=== PATIENT | female | born 1970 | race Caucasian/White ===

== ENCOUNTER → 2017-03-09 | Outpatient (CLI) | payer OTHER, MEDICAID | LOC: FIMAGING 11:48 | PROVIDERS: ATTEND Internal Medicine | DX: Z12.31 Encounter for screening mammogram for malignant neoplasm of breast (principal); Z80.3 Family history of malignant neoplasm of breast | CPT/HCPCS: 81025-PO; 96372-PO; G0202 ==

== ENCOUNTER 2018-01-07 21:01 | Inpatient (IN) | payer OTHER, MEDICAID ==
--- NOTE | 2018-01-07 21:07 | EDPHY ---
H & P Time Seen by Provider: 01/07/18 21:06 HPI/ROS: CHIEF COMPLAINT: Left leg injury HISTORY OF PRESENT ILLNESS: Patient was at a barbecue and tripped on a step and fell injuring her left lower leg. Pain is lower brown, does not radiate, much worse with any movement. Started just after the fall. Moderate to severe. Brought in by EMS with a splint. REVIEW OF SYSTEMS: Eye: no change in vision ENT: no sore throat Cardiac: no chest pain or syncope Pulmonary: no cough or SOB Abdomen: No abdominal pain Musculoskeletal: No neck or back pain Skin: No laceration. Neuro: no headache Constitutional: no fever : no urinary symptoms A comprehensive 10 point review of systems is otherwise negative aside from elements mentioned in the history of present illness. PAST MEDICAL HISTORY: Includes cerebral palsy, seizure disorder, depression, high cholesterol. Old tibia fracture on the left with hardware removed. Social history: 3 beers tonight General Appearance: Alert and conversant, cooperative. Eyes: No scleral icterus. ENT, Mouth: Normal mucous membranes. Respiratory: Normal respiratory effort, breath sounds equal, lungs are clear to auscultation. Cardiovascular: Regular rate and rhythm. Gastrointestinal: Abdomen is soft and non tender. Neurological: Alert, face symmetric, normal motor and sensory in extremities. Specifically normal motor sensory and dorsalis pedis pulse in the left foot. Skin: 1 mm abrasion medial left ankle but no laceration. Musculoskeletal: Swelling and ecchymosis on the distal 3rd of the left tib- fib. Compartments soft in the left lower leg. Psychiatric: Not agitated. Emergency Department course/MDM: 2127: results discussed, splint, admit for ortho consultation in the morning. My clinical impression the patient will require admission for gait instability, pain medication, admission for monitoring of compartment syndrome. Family is in agreement that discharge home would be impractical tonight. Smoking Status: Never smoked Constitutional: Initial Vital Signs Temperature (C) 36.8 C 01/07/18 21:07 Heart Rate 72 01/07/18 21:07 Respiratory Rate 16 01/07/18 21:07 Blood Pressure 121/78 H 01/07/18 21:07 O2 Sat (%) 100 01/07/18 21:07 O2 Delivery Mode Nasal Cannula O2 (L/minute) 2 Allergies/Adverse Reactions: ENVIRONMENTAL Allergy (Mild, Uncoded 11/19/11 14:59) STUFFY NOSE Home Medications: Medication Instructions Recorded Ergocalciferol [Vitamin D 50,000 50,000 unit PO SA 09/05/11 units] levETIRAcetam [Keppra 500 mg (*)] 250 mg PO BID 09/05/11 lamoTRIgine [LamICTAL] 150 mg PO BID 09/07/11 Pravastatin Sodium 04/28/16 Valacyclovir 04/28/16 Depo-Provera 150 mg/ml (*) 01/07/18 Medical Decision Making - Diagnostics Imaging Results: Imaging Impressions Tibia/Fibula X-Ray 01/07/18 21:05 Impression: 1. Acute fractures of the left tibia and fibula. 2. Healed fractures of the medial and lateral malleolus with associated degenerative changes of the left ankle. tibia and fibula fracture, my interpretation Imaging: I viewed and interpreted images myself Procedures: Procedure: Splint placement. A left Ortho Glass long leg three-way splint was applied. After application of the splint I returned and re-examined the patient, at 2202. The splint was adequately immobilizing the joint and distal to the splint the patient's circulation and sensation was intact. Differential Diagnosis: Differential considered including but not limited to ankle dislocation, tibia fracture, fibula fracture, contusion, compartment syndrome. Consult/Admit Bed Type: [facility] 2131; [facility] 2147 Departure - Departure Disposition: [facility] Inpatient Acute Clinical Impression: Tibia/fibula fracture Qualifiers: Encounter type: initial encounter Fracture type: closed Laterality: left Qualified Code(s): S82.202A - Unspecified fracture of shaft of left tibia, initial encounter for closed fracture Condition: Good
[2018-01-07] MEDS ORDERED: HYDROmorphONE/DILAUDID 1 MG/ML INJ IVP ONE (22:08)
[2018-01-07] MEDS ORDERED: LORazepam 0.5 MG TAB PO PRN (23:06)
[2018-01-07] MEDS ORDERED: diphenhydrAMINE 25 MG CAP PO PRN (23:06)
[2018-01-07] MEDS ORDERED: ONDANSETRON 4 MG/2 ML VIAL IVP PRN (23:06)
[2018-01-07] MEDS ORDERED: HYDROCODONE/APAP 5/325 TAB PO PRN (23:06)
[2018-01-07 23:34] LABS: PLATELET COUNT 157 10^3/uL (150-400)
[2018-01-07 23:43] LABS: INR 1.05 (0.83-1.16); PROTIME(PATIENT) 13.9 SEC (12.0-15.0)
[2018-01-08] MEDS: ACETAMINOPHEN 325 MG TAB PO PRN ×2 (00:04→22:19)
[2018-01-08] MEDS ORDERED: NS 1,000 ML IV SCH (00:15)
[2018-01-08] MEDS ORDERED: levETIRAcetam 500 MG TAB PO SCH ×2 (00:15→21:00)
[2018-01-08] MEDS: lamoTRIgine 100 MG TAB PO SCH ×3 (00:35→20:23)
[2018-01-08] MEDS: PRAVASTATIN SODIUM 10 MG TAB PO SCH ×2 (00:35→20:26)
--- NOTE | 2018-01-08 02:14 | GCON ---
[f rep st] CONSULTATION REFERRING PHYSICIAN: Juan Schaffer MD CHIEF COMPLAINT: Left leg pain. HISTORY OF PRESENT ILLNESS: This is a 47-year-old female with a past medical history of seizure diso rder and cerebral palsy, who was at a barbecue earlier today. She tripped on a step and fell, injuri ng her left lower leg. She was accompanied by her aunt, whom she lives with, who immediately noticed a deformity of the tibia, and she strained the leg and waited for EMS to arrive with a splint. The patient complained of pain in that leg after the injury. She has cerebral palsy that affects her lef t side; however, it is mild and she is very high functioning. Currently, works at a [employer]. Last seizure was last year in February and other wire was well controlled prior to this injury . She ambulates without any issues, without any assistive devices. States that the CP affects her l eft hand with some tightness and her left leg, which is weaker. She does have a history of a prior l eft ankle fracture that was fixed surgically in 2011 with later hardware removal. 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 She denies an y numbness and tingling in the foot currently. REVIEW OF SYSTEMS: A 10-point review of systems was negative, except for as noted above. PAST MEDICAL HISTORY: Cerebral palsy, seizure disorder, depression, high cholesterol. SOCIAL HISTORY: Occasional alcohol. SURGICAL HISTORY: Prior left ankle ORIF and hardware removal. OBJECTIVE: Labs: Her CBC is within normal limits. PHYSICAL EXAM: GENERAL: She is alert and oriented, pleasant, does not appear to be in any distress. MUSCULOSKELETAL: The patient is in a 3-sided lower leg splint. Per ED report, the skin was closed at the fracture site without any soft tissue injury. The compartments were soft. She appears comfo rtable in the splint. The splint is quite bulky over the foot and it is difficult to assess the jack r exam, as she endorses a sensation intact to light touch over all dermatomes in her foot. She is ab le to fire her FHL, though limited by the splint. Is unable to extend her great toe, but states that this is due to the bulky splint. I am able to palpate the tendon firing when she is instructed to d o so. Her toes are all well perfused. IMAGING: X-ray of the left tibia reveals a distal 3rd shaft, spiral-type fracture of the tibia shaft with displacement and shortening. 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 There does not appear to be any bony injury to the knee. ASSESSMENT: Left tibia shaft fracture. Although the patient has a history of cerebral palsy, it is mild and she is young and very functional. Intramedullary nailing of this tibial shaft fracture is i ndicated. I discussed with her and her aunt the risks and benefits of surgery. Risks of surgery inc lude pain, bleeding, infection, damage to any surrounding structures, knee pain, and a delayed union, nonunion, need for further surgeries, wound healing complications. They understood these risks and she wished to proceed. PLAN: The patient will be admitted to the hospitalist service. I will plan on an IM nail of the lef t tibia tomorrow. /[id number]/MODL
--- NOTE | 2018-01-08 05:17 | PDGENHP ---
History and Physical - Chief Complaint Left leg pain, fall - History of Present Illness Source-patient provides history appears reliable. EMR was reviewed and case discussed with ED provider. HPI-this is a very pleasant 47-year-old female with past medical history significant for cerebral palsy with chronic left sided weakness, seizure disorder, depression, HLD who presents emergency department via EMS following a mechanical fall. Patient reports that she was a family barbecue when she was coming off of the patio she had a misstep and fell landing on her left side on some [place]. She had immediate pain in her left lower leg. She denies any numbness tingling. She denies any preceding headache, numbness tingling, chest pain, shortness of breath or palpitations. Patient does not typically require any assistance mobility devices and is quite independent. She is employed. She reports that her last fall was a few years ago and was also mechanical in nature on her left side. She did require home ORIF of the tib-fib with hardware placement and subsequent removal. Patient was put in a splint. She reports some pain in her left lower extremity but no numbness or tingling. History Information - Allergies/Home Medication List Allergies/Adverse Reactions: ENVIRONMENTAL Allergy (Mild, Uncoded 11/19/11 14:59) STUFFY NOSE Home Medications: Ergocalciferol [Vitamin D 50,000 units] 50,000 unit PO Q14D 09/05/11 [Last Taken 12/31/17] levETIRAcetam [Keppra 500 mg (*)] 500 mg PO BID 09/05/11 [Last Taken 01/07/18 08 :00] lamoTRIgine [LamICTAL] 150 mg PO BID 09/07/11 [Last Taken 01/07/18 08:00] Atenolol [Tenormin 100 mg (*)] 100 mg PO DAILY 01/07/18 [Last Taken 01/07/18] Herbals/Supplements -Info Only 1 ea PO DAILY 01/07/18 [Last Taken Unknown] Omeprazole 20 mg PO DAILY 01/07/18 [Last Taken 01/07/18] Pravastatin Sodium [Pravachol] 10 mg PO HS 01/07/18 [Last Taken 01/06/18] valACYclovir [Valtrex (*)] 2,000 mg PO Q12 PRN MDD ONE DAY 01/07/18 [Last Taken Unknown] I have personally reviewed and updated: family history, medical history, social history, surgical history - Past Medical History Additional medical history: Cerebral palsy with left-sided weakness. Left hand contracture. Seizure disorder. Depression. Hyperlipidemia - Surgical History Additional surgical history: Left tib-fib ORIF status post hardware removal. Right bunion surgery. Eye surgery - Family History Additional family history: Mother with HTN. No seizure or neurologic disorders in the family. - Social History Smoking Status: Never smoked Alcohol Use: Occasionally Drug Use: None Additional social history: Patient lives with her aunt. Cor status-full. Review of Systems Review of Systems: ROS: 10pt was reviewed & negative except for what was stated in HPI & below Muscolosketal: Reports: joint pain (Left lower leg.) Skin: Reports: no symptoms. Denies: rash Neurological: Reports: no symptoms, seizure (Patient without any symptoms for more than a year.), weakness (Chronic left-sided weakness compared to the right but mild related to patient's CP). Denies: emotional problems, numbness, tingling Hematologic/Lymphatic: Reports: no symptoms Physical Exam Physical Exam: Selected Entries 01/07/18 21:07 Blood Pressure Automatic Method Heart Rate 72 Respiratory 16 Rate O2 Sat (%) 100 Temperature (C) 36.8 C Blood Pressure 121/78 H Mean Arterial 92 Pressure (MAP) O2 (L/minute) 2 O2 Delivery Nasal Cannula Mode Temperature Oral Source Temp Pulse Resp BP Pulse Ox 36.7 C 82 16 124/71 H 100 01/07/18 23:53 01/07/18 23:53 01/07/18 23:53 01/07/18 23:53 01/07/18 23:53 O2 (L/minute) 3 Constitutional: no apparent distress, appears nourished, other (NAD. Pleasant adult female is lying quietly in bed.) Eyes: PERRL, anicteric sclera, EOMI, No scleral injection Ears, Nose, Mouth, Throat: moist mucous membranes, ears appear normal, poor dentition Cardiovascular: regular rate and rhythym, no murmur, rub, or gallop, No pulses symmetric bilaterally (Left and foot in splint. Good cap refill and sensation intact. Unable to assess pedal pulses.), No edema Peripheral Pulses: 2+: dorsalis-pedis (R) Respiratory: no respiratory distress, no rales or rhonchi, clear to auscultation , reduced air movement (Decreased inspiratory effort bilaterally but symmetric.) , No inspiratory crackles Gastrointestinal: normoactive bowel sounds, soft, non-tender abdomen, no palpable masses, other (Obese abdomen. Soft nontender.) Genitourinary: no bladder tenderness, No daily in urethra Skin: warm, normal color, mottled, no rashes or abrasions Musculoskeletal: full muscle strength (Except for left hand which is contracted and left foot in splint currently. ), No generalized weakness Neurologic: AAOx3, sensation intact bilaterally, other (Grossly nonfocal exam.) , No facial droop Psychiatric: interacting appropriately, not anxious, not encephalopathic, thought process linear Lab Data & Imaging Review 01/07/18 23:23 01/07/18 22:30 WBC 7.48 10^3/uL (3.80-9.50) 01/07/18 23:23 RBC 4.24 10^6/uL (4.18-5.33) 01/07/18 23:23 Hgb 13.5 g/dL (12.6-16.3) 01/07/18 23:23 Hct 40.6 % (38.0-47.0) 01/07/18 23:23 MCV 95.8 fL (81.5-99.8) 01/07/18 23:23 MCH 31.8 pg (27.9-34.1) 01/07/18 23:23 MCHC 33.3 g/dL (32.4-36.7) 01/07/18 23:23 RDW 12.5 % (11.5-15.2) 01/07/18 23:23 Plt Count 157 10^3/uL (150-400) 01/07/18 23:23 MPV 9.4 fL (8.7-11.7) 01/07/18 23:23 Neut % (Auto) 76.0 % (39.3-74.2) H 01/07/18 23:23 Lymph % (Auto) 16.8 % (15.0-45.0) 01/07/18 23:23 [place] % (Auto) 5.3 % (4.5-13.0) 01/07/18 23:23 Eos % (Auto) 1.1 % (0.6-7.6) 01/07/18 23:23 Baso % (Auto) 0.5 % (0.3-1.7) 01/07/18 23: Nucleat RBC Rel Count 0.0 % (0.0-0.2) 01/07/18 23:23 Absolute Neuts (auto) 5.68 10^3/uL (1.70-6.50) 01/07/18 23: Absolute Lymphs (auto) 1.26 10^3/uL (1.00-3.00) 01/07/18 23:23 Absolute Monos (auto) 0.40 10^3/uL (0.30-0.80) 01/07/18 23: Absolute Eos (auto) 0.08 10^3/uL (0.03-0.40) 01/07/18 23:23 Absolute Basos (auto) 0.04 10^3/uL (0.02-0.10) 01/07/18 23: Absolute Nucleated RBC 0.00 10^3/uL (0-0.01) 01/07/18 23: Immature Gran % 0.3 % (0.0-1.1) 01/07/18 23: Immature Gran # 0.02 10^3/uL (0.00-0.10) 01/07/18 23:23 PT 13.9 SEC (12.0-15.0) 01/07/18 23:23 INR 1.05 (0.83-1.16) 01/07/18 23:23 APTT 26.1 SEC (23.0-38.0) 01/07/18 23:23 Sodium 136 mEq/L (135-145) 01/07/18 22:30 Potassium 3.9 mEq/L (3.3-5.0) 01/07/18 22:30 Chloride 108 mEq/L (97-110) 01/07/18 22:30 Carbon Dioxide 21 mEq/l (22-31) L 01/07/18 22:30 Anion Gap 7 mEq/L (8-16) L 01/07/18 22:30 BUN 13 mg/dL (7-23) 01/07/18 22:30 Creatinine 0.8 mg/dL (0.6-1.0) 01/07/18 22:30 Estimated GFR > 60 01/07/18 22:30 Glucose 83 mg/dL (70-100) 01/07/18 22: Calcium 8.4 mg/dL (8.5-10.4) L 01/07/18 22:30 Beta HCG, Qual NEGATIVE 01/07/18 22:30 Patient ABO/Rh O POSITIVE 01/07/18 22:30 Antibody Screen NEGATIVE 01/07/18 22:30 Imaging Review: Left Tibia/Fibula (Lower Leg), 5 Views Clinical Indications: Pain following trauma. Findings: There is an acute, displaced spiral fracture of the distal shaft of the left tibia. Additionally there is a mildly displaced fracture of the proximal shaft of the left fibula. Healed fractures of the distal left tibia and fibula are noted. Degenerative changes are seen involving the left ankle. Impression: 1. Acute fractures of the left tibia and fibula. 2. Healed fractures of the medial and lateral malleolus with associated degenerative changes of the left ankle. Assessment & Plan Assessment: This is a 47-year-old female with history of cerebral palsy, seizure disorder, depression, hyperlipidemia who presents emergency department following a mechanical fall and subsequent left lower leg pain. #Tibia/fibula fracture (Acute) - patient requiring surgical repair. She has been made NPO after midnight. Dr. Pimentel has been consulted with Orthopedics. #Acute pain related to trauma - Tylenol, [place], morphine, Ativan p.r.n. For pain control. Chronic medical issues #Cerebral palsy - PT OT consultation postoperatively. Patient at baseline is very independent and active. She does not require use for assisted to sit vices for ambulation. He she does have a history of persistent left extremity weakness. #Seizure disorder - continue Lamictal and Keppra. #Depression - resume patient's home medications. #Hyperlipidemia - continue statin. FEN - patient will be made NPO after midnight. IV fluids will be initiated. Electrolyte monitoring replacement if needed. PPX-SCD to the right leg only. Holding anticoagulation preoperatively. Cor status-full Disposition-patient admitted to observation status at this time pending surgical repair and patient mobility status after surgery.
[2018-01-08] MEDS ORDERED: LORazepam 2 MG/ML INJ IVP PRN (06:20)
[2018-01-08] MEDS ORDERED: LORazepam 2 MG/ML INJ ONE (06:22)
[2018-01-08] MEDS: ATENOLOL 50 MG TAB PO SCH (07:34)
[2018-01-08] MEDS ORDERED: PANTOPRAZOLE SODIUM 40 MG VIAL IVP SCH (09:00)
[2018-01-08] MEDS ORDERED: PANTOPRAZOLE SODIUM 40 MG TAB PO SCH (09:00)
[2018-01-08] MEDS ORDERED: levETIRAcetam 500MG/NACL 100 ML IV SCH (09:00)
[2018-01-08] MEDS ORDERED: MAGNESIUM HYDROXIDE 30 ML UDCUP PO PRN (09:54)
[2018-01-08] MEDS ORDERED: LACTULOSE 20 GM/30 ML UDCUP PO PRN (09:54)
[2018-01-08] MEDS ORDERED: POLYETHYLENE GLYCOL 3350 17 GM PKT PO PRN (09:54)
[2018-01-08] MEDS ORDERED: CETIRIZINE 10 MG TAB PO PRN (09:54)
[2018-01-08] MEDS ORDERED: BISACODYL 10 MG SUPP PR PRN (09:54)
[2018-01-08] MEDS ORDERED: ceFAZolin 2 GM/DEXTROSE 100 ML IV ONE (12:05)
--- NOTE | 2018-01-08 12:05 | PDHPUP ---
History & Physical Update H&P update statement: This history and physical update is based on an assessment of the patient which was completed after admission or registration (within 24 hours), but prior to the surgery/procedure. H&P update: H&P reviewed & patient examined, no change in patient's condition since H&P completed
[2018-01-08] MEDS ORDERED: PROPOFOL 200 MG/20 ML VIAL ONE (12:16)
[2018-01-08] MEDS ORDERED: fentaNYL 100 MCG/2 ML INJ ONE ×2 (12:16)
[2018-01-08] MEDS ORDERED: LIDOCAINE 2% 5 ML SDV ONE (12:16)
[2018-01-08] MEDS ORDERED: LR 1,000 ML IV ONE (12:19)
[2018-01-08] MEDS ORDERED: MIDAZOLAM 2 MG/2 ML VIAL ONE (12:32)
[2018-01-08] MEDS ORDERED: ONDANSETRON 4 MG/2 ML VIAL ONE (12:33)
[2018-01-08] MEDS ORDERED: KETOROLAC 30 MG/1 ML SDV ONE (12:33)
[2018-01-08] MEDS ORDERED: DEXAMETHASONE 4 MG/ML VIAL ONE (12:33)
[2018-01-08] MEDS ORDERED: MIDAZOLAM 2 MG/2 ML VIAL IVP ONE (12:34)
--- NOTE | 2018-01-08 12:36 | PDANEPAE ---
ANE History of Present Illness left tibial shaft fx ANE Past Medical History - Cardiovascular History Hx Hypertension: Yes Hx Arrhythmias: No Hx Chest Pain: No Hx Coronary Artery / Peripheral Vascular Disease: No Hx CHF / Valvular Disease: No Hx Palpitations: No - Pulmonary History Hx COPD: No Hx Asthma/Reactive Airway Disease: No Hx Recent Upper Respiratory Infection: No Hx Oxygen in Use at Home: No Hx Sleep Apnea: No Sleep Apnea Screening Result - Last Documented: Positive Pulmonary History Comment: on statin drug - Neurologic History Hx Cerebrovascular Accident: No Hx Seizures: Yes Hx Dementia: No Neurologic History Comment: last seizure 2016. Left arm weaker than right. - Endocrine History Hx Diabetes: No Obesity: yes - Renal History Hx Renal Disorders: No - Liver History Hx Hepatic Disorders: No - Neurological & Psychiatric Hx Hx Neurological and Psychiatric Disorders: No Neurological / Psychiatric History Comment: mild depression - Cancer History Hx Cancer: No - Congenital Disorder History Hx Congenital Disorders: No - GI History Hx Gastrointestinal Disorders: Yes Gastrointestinal History Comment: heartburn - Other Health History Other Health History: R big toe pain - Chronic Pain History Chronic Pain: No - Surgical History Prior Surgeries: ORIF L ankle, L ankle hardware removal ANE Review of Systems Review of systems is: negative Review of Systems: - Exercise capacity Exercise capacity: >=4 METS ANE Patient History - Allergies Allergies/Adverse Reactions: ENVIRONMENTAL Allergy (Mild, Uncoded 11/19/11 14:59) STUFFY NOSE - Home Medications Home medications: home medication list seen and reviewed Home Medications: Ergocalciferol [Vitamin D 50,000 units] 50,000 unit PO Q14D 09/05/11 [Last Taken 12/31/17] levETIRAcetam [Keppra 500 mg (*)] 250 mg PO BID 09/05/11 [Last Taken 01/07/18 08 :00] lamoTRIgine [LamICTAL] 150 mg PO BID 09/07/11 [Last Taken 01/07/18 08:00] Atenolol [Tenormin 100 mg (*)] 100 mg PO DAILY 01/07/18 [Last Taken 01/07/18] Herbals/Supplements -Info Only 1 ea PO DAILY 01/07/18 [Last Taken Unknown] Omeprazole 20 mg PO DAILY 01/07/18 [Last Taken 01/07/18] Pravastatin Sodium [Pravachol] 10 mg PO HS 01/07/18 [Last Taken 01/06/18] valACYclovir [Valtrex (*)] 2,000 mg PO Q12 PRN MDD ONE DAY 01/07/18 [Last Taken Unknown] Cetirizine [ZyrTEC 10 mg (*)] 10 mg PO DAILY PRN 01/08/18 [Last Taken Unknown] Citalopram [CeleXA] 20 mg PO DAILY 01/08/18 [Last Taken Unknown] - NPO status NPO Since - Liquids (Date): 01/08/18 NPO Since - Liquids (Time): 00:01 NPO Since - Solids (Date): 01/08/18 NPO Since - Solids (Time): 00:01 - Anes Hx Anes Hx: no prior problems - Smoking Hx Smoking Status: Never smoked - Alcohol Use Alcohol Use: Occasionally ANE Labs/Vital Signs - Labs Result Diagrams: 01/07/18 23:23 01/07/18 22:30 - Vital Signs Blood Pressure: 140/89 Heart Rate: 86 Respiratory Rate: 16 O2 Sat (%): 97 Height: 157.48 cm Weight: 72.575 kg ANE Physical Exam - Airway Neck exam: FROM Mallampati Score: Class 2 Mouth exam: small mouth opening - Pulmonary Pulmonary: no respiratory distress - Cardiovascular Cardiovascular: regular rate and rhythym - ASA Status ASA Status: III ANE Anesthesia Plan Anesthesia Plan: GA w LMA
[2018-01-08] MEDS ORDERED: BUPIVACAINE/EPI 0.5% 30 ML SDV ONE (12:38)
--- NOTE | 2018-01-08 12:55 | HOSPPROG ---
Hospitalist Progress Note Assessment/Plan: Assessment: 47-year-old female presenting with acute left tibia and fibular fracture status post mechanical fall Plan: 1. Acute tibia and fibular fracture. Closed, personally interpreted on x-ray, currently immobilized with wrap and splint -RCRI score of 0, conferring is 0.5% cardiovascular morbidity and mortality perioperative risk, rendering patient low cardiovascular risk for intermediate orthopedic risk surgery, recommend proceeding to surgery without any additional cardiovascular risk stratification at this time -patient is going to the operating room with orthopedist Dr. Pimentel for left intramedullary nailing today -discussed with patient and her anti extensively the patient's home situation which includes 14 steps up to the house in [place], but they have the support of local residence until the patient get in and out of house, they are open to home health care assistance -counseled the patient that she will undergo surgery today, we will assess her therapy needs tomorrow and make further recommendations at that time -continue as needed oxycodone for pain relief, Tylenol, bowel regimen, incentive spirometer -the patient's aunt is very concerned about potentially low bone mineral density , and she has shared with me that the patient is currently on a Depo-Provera for unclear reasons, and the patient would like to temporarily discontinue this until a can be established whether the patient is receiving any clinical benefit -will discontinue her Depo-Provera and recommend the patient continue this conversation with her outpatient primary care provider 2. Gastroesophageal reflux disease. Reportedly severe, patient is currently taking proton pump inhibitor and concomitant H2 uriel -continue both medications 3. Cerebral palsy. Patient is high functioning at baseline, she has had previous mechanical falls and fractures, but there is no reason to suspect the patient will not be able to recover from the above injury after receiving surgical repair Diet. NPO, IV fluids, resume regular after surgery Code. Full Prophylaxis. Moderate risk patient, SCDs preoperatively, Lovenox postoperatively when okay with Orthopedics Disposition. Anticipated discharge is 01/09 versus 01/10, pending postoperative course. Subjective: Patient reports pain management is currently adequate at rest Objective: Vital Signs Temp Pulse Resp BP Pulse Ox 36.8 C 86 16 140/89 H 97 01/08/18 11:57 01/08/18 12:36 01/08/18 12:36 01/08/18 12:36 01/08/18 12:36 Laboratory Results 07/07/18 23:23 01/07/18 22:30 01/07/18 01/08/18 01/09/18 05:59 05:59 05:59 Intake Total 1650 Output Total 700 525 Balance 950 -525 PT 13.9 SEC (12.0-15.0) 01/07/18 23:23 INR 1.05 (0.83-1.16) 01/07/18 23:23 - Time Spent With Patient Time Spent with Patient: greater than 35 minutes Time Spent with Patient: Greater than 35 minutes spent on this patients care, greater than 50% of time spent counseling, educating, and coordinating care regarding the above mentioned plan. - Physical Exam Constitutional: no apparent distress, not in pain, uncomfortable Cardiovascular: regular rate and rhythym, no murmur, rub, or gallop, No edema Respiratory: no respiratory distress, no rales or rhonchi, clear to auscultation Gastrointestinal: normoactive bowel sounds, soft, non-tender abdomen, no palpable masses, No distension Neurologic: AAOx3 Psychiatric: not anxious, flat affect, other (Lethargic but arouses), No agitated ICD10 Worksheet Patient Problems: Problems Problem Status Onset Tibia/fibula fracture Acute
[2018-01-08] MEDS ORDERED: SUGAMMADEX SODIUM 200 MG/2 ML VIAL IVP ONE (13:00)
[2018-01-08] MEDS ORDERED: HYDROmorphONE/DILAUDID 2 MG/ML INJ ONE (13:11)
[2018-01-08] MEDS ORDERED: ROCURONIUM 50 MG/5 ML VIAL ONE ×2 (13:24)
--- NOTE | 2018-01-08 13:29 | POSTANESTH ---
Post Anesthetic Evaluation Cardiovascular Status: Normal, Stable Respiratory Status: Normal, Stable Level of Consciousness/Mental Status: Can Participate in Eval, Mildly Sleepy, Arousable Pain Control: Adequate, Prn Tx Ordered Nausea/Vomiting Control: Adequate, Prn Tx Ordered Complications Possibly Related to Anesthesia: None Noted
--- NOTE | 2018-01-08 14:22 | ASMTCMCOM ---
CM Note CM Note Notes: Case Management chart review: Patient is a 47 year old female with history of cerebral palsey,left sided weakness, seizure disorder, depression, HLD. Patient admitted via ED s/p fall resulting in Left Tibial Fracture. Per Hospitalist, patient has support from Aunt and community in [place]. Patient to undergo surgery today to address fracture. Patient is open to Home Health. Discharge options Home w/ Home Health vs. SNF TBD after surgery. CM to follow. Discharge Plan: TBD Date Signed: 01/08/2018 02:22 PM Electronically Signed By:Sade An
[2018-01-08] MEDS ORDERED: ONDANSETRON 4 MG/2 ML VIAL IVP PRN (14:31)
[2018-01-08] MEDS ORDERED: ALBUTEROL 3 ML DEYVIAL IH PRN (14:31)
[2018-01-08] MEDS ORDERED: DIAZEPAM 5 MG/ML 1 ML SYR IVP PRN (14:31)
[2018-01-08] MEDS ORDERED: NALOXONE HCL 0.4 MG/ML INJ IVP PRN (14:31)
[2018-01-08] MEDS ORDERED: fentaNYL 100 MCG/2 ML INJ IVP PRN (14:31)
[2018-01-08] MEDS ORDERED: PROMETHAZINE HCL 25 MG/ML INJ IVP PRN (14:31)
[2018-01-08] MEDS ORDERED: ACETAMINOPHEN 500 MG TAB PO PRN (14:31)
[2018-01-08] MEDS ORDERED: LR 500 ML IV PRN (14:31)
[2018-01-08] MEDS ORDERED: HYDROmorphONE/DILAUDID 1 MG/ML INJ IVP PRN (14:31)
[2018-01-08] MEDS ORDERED: oxyCODONE IR 5 MG TAB PO PRN (14:31)
--- NOTE | 2018-01-08 16:02 | GOP ---
[f rep st] OPERATIVE REPORT DATE OF OPERATION: 01/08/2018 SURGEON: Mo Pimentel MD ZUMBA INSTRUCTOR: Luke Childress, FORENSIC PATHOLOGIST, [facility]. An medical receptionist medical assistant was medically necessary for retraction and successful completion of this case. ANESTHESIA: General. PREOPERATIVE DIAGNOSIS: Left tibia shaft displaced fracture. POSTOPERATIVE DIAGNOSIS: Left tibia shaft displaced fracture. PROCEDURE PERFORMED: Left tibia intramedullary nailing. ESTIMATED BLOOD LOSS: 50 cc. INDICATIONS: The patient is a 47-year-old female with a past history of cerebral palsy and epilepsy, who presented to the ER with a displaced spiral left distal tibia shaft fracture after a fall while at a barbecue. She has a prior history of an ankle fracture with hardware and subsequent hardware removal in 2011. She has cerebral palsy that is mild and she is very functional ; however, it does affect her left side and she states that the left side is weaker. 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 Prior to this accident, she was able to ambulate without any assistive devices normally. I saw the patient in the ER, reviewed the x-rays. She has a displaced spiral type tibial shaft fracture. In an active ambulatory person, intramedullary nailing is indicated for this injury. I discussed with her and her aunt the risks and benefits of surgery. Her risks include pain, bleeding, infection, knee pain, knee stiffness, ankle stiffness, damage to the surrounding structures , delayed union and nonunion, need for further surgeries. She understood these risks and wished to proceed. DESCRIPTION OF PROCEDURE: The patient was seen in the preoperative holding area. Consents were confirmed. Surgical site was marked. She was given the opportunity to ask questions. All of her questions were answered. Consent was signed. Surgical site was marked. She was transferred to the operative suite. Care was taken to transfer the patient from the [facility] to the operating room table. Great care was taken to pad all bony prominences prior to the induction of anesthesia. General anesthesia was induced by the anesthesia team. A time- out was called including surgical and anesthesia teams confirming the surgical site and procedure to be performed. 2 g of Ancef were given prior to incision. The left lower extremity was prepped and draped in the usual sterile fashion. I first acquired a lateral x-ray of the ankle to again evaluate if there are any posterior malleolus fractures and there were none. I then made an attempt to maintain reduction with a spin-down Cordoba clamp; however, I was not able to fully get around the fracture and I was able to maintain normal reduction with an medical receptionist medical assistant providing traction and internal rotation. Thus, I decided to go ahead and place the nail. I made a standard approach for infrapatellar nailing of the tibia, incised the paratenon in a medial parapatellar approach. I placed the guidewire, checked it under fluoroscopy. When I was happy with the position of the guidewire, I then opened up the cortex with an awl. I then placed the guidewire. I placed the guidewire past the fracture site, checked the reduction under fluoroscopy. I then positioned and measured for the nail. I began reaming and began with an 8.5 end-cutting reamer and then reamed up to about 11.5. I had first planned to put a 10 nail in, however, at 11.5 there was minimal chatter, so then I reamed it up again to 12 and then 12.5. At 12.5 , there was fairly good chatter at the isthmus, so I just decided on the 11 x 315 nail. After reaming, I placed the nail. I checked the reduction after the passing of the fracture sites with rotation of the ankle and I had a fairly anatomic reduction. Impacted the nail in fully. I placed the 2 static proximal interlocks. I then placed the 2 distal interlocks in the standard fashion using the freehand technique. Final x-rays were taken. The wounds were irrigated copiously with sterile saline. The interlock screw sites were closed with buried Monocryl and then deena. An 0 Vicryl was used to close the paratenon and then 3-0 Monocryl and then deena. A sterile dressing was applied. The patient tolerated the procedure well, was taken to PACU in stable condition. IMPLANTS USED: Synthes Ex tibia nail, 11 x 315. POSTOP CONDITION: Stable. POSTOPERATIVE PLAN: The patient will be readmitted to the hospitalist service. She will begin PT. She will be toe-touch weightbearing. I will follow her while the patient is in the hospital. /[id number]/MODL MTDD
--- NOTE | 2018-01-08 19:08 | PDMN ---
Medical Necessity Medical necessity: Change to IP, as of 01/08/18, per & MCG [id number]; los >2 mn for ongoing management of acute L tib/fib fx s/p mechanical fall; requiring surgical intervention, IVFs & therapies; hx cerebral palsy; per progress note & order 01/08/18
[2018-01-08] MEDS: ceFAZolin 2 GM/DEXTROSE 100 ML IV SCH (20:22)
[2018-01-08] MEDS: levETIRAcetam 250 MG TAB PO SCH (20:24)
[2018-01-08] MEDS: SENNOSIDES/DOCUSATE SODIUM TAB PO SCH (20:26)
[2018-01-09] MEDS: ceFAZolin 2 GM/DEXTROSE 100 ML IV SCH ×2 (04:19→12:02)
[2018-01-09] MEDS: oxyCODONE IR 5 MG TAB PO PRN ×3 (09:11→20:35)
[2018-01-09] MEDS: lamoTRIgine 100 MG TAB PO SCH ×2 (09:11→20:36)
[2018-01-09] MEDS: SENNOSIDES/DOCUSATE SODIUM TAB PO SCH ×2 (09:12→20:37)
[2018-01-09] MEDS: levETIRAcetam 250 MG TAB PO SCH ×2 (09:12→20:37)
[2018-01-09] MEDS: CITALOPRAM 20 MG TAB PO SCH (09:12)
[2018-01-09] MEDS: ATENOLOL 50 MG TAB PO SCH (09:13)
[2018-01-09] MEDS: PANTOPRAZOLE SODIUM 40 MG TAB PO SCH (09:13)
[2018-01-09] MEDS: ENOXAPARIN 40 MG/0.4 ML SYR SC SCH (09:14)
--- NOTE | 2018-01-09 10:06 | SOAPPROG ---
SOAP Progress Note Assessment/Plan: Assessment: POD #1 s/p L tibia IMN -doing well, pain appears controlled Plan: -appreciate care of medicine team -DVT prophy w/ Lovenox. Start today. Plan 3 wks total -TTWB LLE -PT -pain ctrl -she is stable for d/c from ortho standpoint when she is cleared by PT/OT 01/09/18 09:56 Subjective: Doing well this morning. Pain appears well controlled. Resting in bed. Has not worked with PT yet. Objective: Vital Signs Temp Pulse Resp BP Pulse Ox 36.7 C 85 16 133/81 H 96 01/09/18 07:24 01/09/18 09:13 01/09/18 07:24 01/09/18 09:13 01/09/18 07:24 Laboratory Results 01/07/18 23:23 01/07/18 22:30 01/08/18 01/09/18 01/10/18 05:59 05:59 05:59 Intake Total 1650 2325 200 Output Total 700 2625 250 Balance 950 -300 -50 PT 13.9 SEC (12.0-15.0) 01/07/18 23:23 INR 1.05 (0.83-1.16) 01/07/18 23:23 LLE -dressings are c/d/i with no breakthrough -intact ankle DF/PF. She states that she has always had difficulty with mobility of toes due to condition -SILT all dermatomes in foot -2+ DP pulse -no pain with passive stretch of toes ICD10 Worksheet Patient Problems: Problems Problem Status Onset Tibia/fibula fracture Acute
--- NOTE | 2018-01-09 15:25 | ASMTCMCOM ---
CM Note CM Note Notes: Patient is POD #1 tibia LMN. She's doing well, with pain well controlled. PT recommending home care v SNF. I spoke with the patient's aunt/caregiver Flaca. They have DME at home and have arranged for the [place] [employer] to help transfer patient into the home tomorrow. They are also available to help get patient out of the house for doctor's appointments, etc. This is what the family did when patient last broke her leg. I've ordered [facility] PT/OT. Likely discharge tomorrow. Case Management will follow. Date Signed: 01/09/2018 03:25 PM Electronically Signed By:Valarie Mckeon RN
--- NOTE | 2018-01-09 17:59 | HOSPPROG ---
Hospitalist Progress Note Assessment/Plan: Assessment: 47-year-old female presenting with acute left tibia and fibular fracture status post mechanical fall Plan: 1. Acute tibia and fibular fracture. POD#[address] Pimentel -d/w Dr. Pimentel, he recommends TDWB LLE, keep area clean/dry, and f/u w/ his office in 1.5-2 weeks from DC -continue as needed oxycodone for pain relief, Tylenol, bowel regimen -ongoing work w/ PT/OT today, not safe to DC home, but tomorrow pt w/ have asst from local fire dept to [facility] -patient family requested ASA at discharge for DVT ppx, appropriate, rec 81 daily while immobile -the patient's aunt is very concerned about potentially low bone mineral density , and she has shared with me that the patient is currently on a Depo-Provera for unclear reasons, and the patient would like to temporarily discontinue this until a can be established whether the patient is receiving any clinical benefit -will discontinue her Depo-Provera and recommend the patient continue this conversation with her outpatient primary care provider 2. Gastroesophageal reflux disease. Reportedly severe, patient is currently taking proton pump inhibitor and concomitant H2 uriel -continue both medications 3. Cerebral palsy. Patient is high functioning at baseline, she has had previous mechanical falls and fractures, but there is no reason to suspect the patient will not be able to recover from the above injury after receiving surgical repair 4. Acute atelectasis. Counseled patient and aunt to use IS and that o2 requirements should be weaned as activity advances -if continues to require o2, get CXR Diet. Regular Code. Full Prophylaxis. Moderate risk patient, lovenox 40 Disposition. Anticipated discharge is 01/10 w/ [facility] Subjective: patient w/ mild pain, used half oxy IR, has paresthesia distal LLE Objective: Vital Signs Temp Pulse Resp BP Pulse Ox 36.6 C 77 16 116/81 H 95 01/09/18 15:27 01/09/18 15:27 01/09/18 15:27 01/09/18 15:27 01/09/18 15:27 Laboratory Results 01/07/18 23:23 01/07/18 22:30 01/08/18 01/09/18 01/10/18 05:59 05:59 05:59 Intake Total 1650 2325 1050 Output Total 700 0175 350 Balance 950 -300 700 PT 13.9 SEC (12.0-15.0) 01/07/18 23:23 INR 1.05 (0.83-1.16) 01/07/18 23:23 - Time Spent With Patient Time Spent with Patient: greater than 35 minutes Time Spent with Patient: Greater than 35 minutes spent on this patients care, greater than 50% of time spent counseling, educating, and coordinating care regarding the above mentioned plan. - Pending Discharge Pending Discharge Within 24 Hours: Yes Pending Discharge Date: 01/10/18 Pending Discharge Time: 11:00 - Physical Exam Constitutional: no apparent distress, not in pain, obese, No uncomfortable Cardiovascular: regular rate and rhythym, no murmur, rub, or gallop, other ( good cap refill distal LLE) Respiratory: inspiratory crackles (bilat bases w/ reduced air movement), No expiratory wheeze, No bronchial breath sounds, No respiratory distress Gastrointestinal: normoactive bowel sounds, soft, non-tender abdomen, no palpable masses, No distension Neurologic: AAOx3, No sensation intact bilaterally (subjective paresthesia distal LLE toes) Psychiatric: interacting appropriately, not anxious, not encephalopathic, thought process linear ICD10 Worksheet Patient Problems: Problems Problem Status Onset Tibia/fibula fracture Acute
[2018-01-09] MEDS: ACETAMINOPHEN 325 MG TAB PO PRN (20:35)
[2018-01-09] MEDS: PRAVASTATIN SODIUM 10 MG TAB PO SCH (20:37)
[2018-01-10] MEDS: ACETAMINOPHEN 325 MG TAB PO PRN ×2 (07:25→14:54)
[2018-01-10] MEDS: oxyCODONE IR 5 MG TAB PO PRN ×2 (07:25→14:55)
[2018-01-10 07:45] VITALS: BP 148/88
[2018-01-10] MEDS: SENNOSIDES/DOCUSATE SODIUM TAB PO SCH (08:20)
[2018-01-10] MEDS: ATENOLOL 50 MG TAB PO SCH (08:21)
[2018-01-10] MEDS: PANTOPRAZOLE SODIUM 40 MG TAB PO SCH (08:21)
[2018-01-10] MEDS: levETIRAcetam 250 MG TAB PO SCH (08:21)
[2018-01-10] MEDS: lamoTRIgine 100 MG TAB PO SCH (08:21)
[2018-01-10] MEDS: CITALOPRAM 20 MG TAB PO SCH (08:21)
[2018-01-10] MEDS: ENOXAPARIN 40 MG/0.4 ML SYR SC SCH (08:22)
--- NOTE | 2018-01-10 08:32 | HOSPPROG ---
Hospitalist Progress Note Assessment/Plan: Per Dr. Pimentel, recommends lovenox 40mg daily x 3 weeks, will plan to order at DC 47-year-old female presenting with acute left tibia and fibular fracture status post mechanical fall. Today is my first encounter w the patient, chart reviewed. *Acute tibia and fibular fracture s/p IMN POD#[address] Pimentel TDWB LLE, keep area clean/dry f/u w/ his office in 1.5-2 weeks from DC * Gastroesophageal reflux disease -cont PPI and H2 uriel. * Cerebral palsy. -Patient is high functioning at baseline, * Acute atelectasis -resolved. *Plan: PT is recommending SNF, will need lovenox x 3 weeks Subjective: Mila says pain is well managed, wants to go home only. Objective: Vital Signs Temp Pulse Resp BP Pulse Ox 36.9 C 81 18 148/88 H 91 L 01/10/18 07:43 01/10/18 07:43 01/10/18 07:43 01/10/18 07:43 01/10/18 07:43 Laboratory Results 01/07/18 23:23 01/07/18 22:30 01/09/18 01/10/18 01/11/18 05:59 05:59 05:59 Intake Total 2325 1150 Output Total 2625 350 Balance -300 800 PT 13.9 SEC (12.0-15.0) 01/07/18 23:23 INR 1.05 (0.83-1.16) 01/07/18 23:23 - Physical Exam Constitutional: no apparent distress, appears nourished, No not in pain (left lower ext) Eyes: PERRL Ears, Nose, Mouth, Throat: hearing normal Cardiovascular: regular rate and rhythym Respiratory: no respiratory distress Gastrointestinal: normoactive bowel sounds Skin: warm Musculoskeletal: generalized weakness Neurologic: AAOx3 Psychiatric: interacting appropriately ICD10 Worksheet Patient Problems: Problems Problem Status Onset Tibia/fibula fracture Acute
--- NOTE | 2018-01-10 09:07 | SOAPPROG ---
SOAP Progress Note Assessment/Plan: Assessment: POD #2 s/p L tibia IMN -doing well today Plan: -appreciate care of medicine team -DVT prophy w/ Lovenox. Plan 3 wks total -TTWB LLE -PT -pain ctrl -she is stable for d/c from ortho standpoint when she is cleared by PT/OT -she can shower 3d from surgery - do not soak. Afterward cover with dry gauze and ALEX wrap as needed. 01/10/18 09:03 Subjective: Doing well this morning. States that the leg still throbs. Controlled with the pain medication and ice. No N/T in the foot. Worked w/ PT yesterday Objective: Vital Signs Temp Pulse Resp BP Pulse Ox 36.9 C 81 18 148/88 H 91 L 01/10/18 07:43 01/10/18 07:43 01/10/18 07:43 01/10/18 07:43 01/10/18 07:43 Laboratory Results 01/07/18 23:23 01/07/18 22:30 01/09/18 01/10/18 01/11/18 05:59 05:59 05:59 Intake Total 2325 1150 Output Total 2625 350 Balance -300 800 PT 13.9 SEC (12.0-15.0) 01/07/18 23:23 INR 1.05 (0.83-1.16) 01/07/18 23:23 LLE -dressing in place, dry w/ no breakthrough -intact ankle DF/PF (difficulty moving toes is her baseline) -SILT all dermatomes -2+ DP p. ICD10 Worksheet Patient Problems: Problems Problem Status Onset Tibia/fibula fracture Acute
--- NOTE | 2018-01-10 14:54 | PDIAF ---
- Diagnosis Diagnosis: acute tibia, fibia fx s/p repair, cerebral palsy Code Status: Full Code - Medication Management Discharge Medications: Medications to Continue on Transfer Ergocalciferol [Vitamin D2 (*)] 50,000 unit PO Q14D 09/05/11 [Last Taken ] levETIRAcetam [Keppra 500 mg (*)] 250 mg PO BID 09/05/11 [Last Taken 01/07/18 08 :00] lamoTRIgine [LamICTAL 100 MG (*)] 150 mg PO BID 09/07/11 [Last Taken 01/07/18 08 :00] Atenolol [Tenormin 100 mg (*)] 100 mg PO DAILY 01/07/18 [Last Taken 01/07/18] Herbals/Supplements -Info Only 1 ea PO DAILY 01/07/18 [Last Taken Unknown] Omeprazole 20 mg PO DAILY 01/07/18 [Last Taken 01/07/18] Pravastatin Sodium [Pravachol] 10 mg PO HS 01/07/18 [Last Taken 01/06/18] valACYclovir [Valtrex (*)] 2,000 mg PO Q12 PRN MDD ONE DAY 01/07/18 [Last Taken Unknown] Cetirizine [ZyrTEC 10 mg (*)] 10 mg PO DAILY PRN 01/08/18 [Last Taken Unknown] Citalopram [CeleXA 20 MG] 20 mg PO DAILY 01/08/18 [Last Taken Unknown] Acetaminophen [Tylenol 325mg (*)] 650 mg PO Q4HRS PRN tab 01/10/18 [Last Taken Unknown] Enoxaparin [Lovenox 40 MG (*)] 40 mg SC DAILY #19 syr 01/10/18 [Last Taken Unknown] Polyethylene Glycol 3350 [Miralax 17 gm (*)] 17 gm PO DAILY PRN pkt 01/10/18 [ Last Taken Unknown] Sennosides/Docusate Sodium [Senokot-S] 1 - 2 tab PO BID tab 01/10/18 [Last Taken Unknown] oxyCODONE IR [Oxycodone Ir (*)] 5 mg PO Q4HRS PRN #10 tab 01/10/18 [Last Taken Unknown] Discharge Medications: Refer to the Discharge Home Medication list for PRN reason. - Orders Services needed: Home Care, Registered Nurse, Physical Therapy, Occupational Therapy Home Care Face to Face: I certify that this patient was under my care and that I had the required [id number] encounter meeting the encounter requirements on the discharge day. My findings support the fact that the patient is homebound as defined in Home Care Face to Face Continued: CMS Chapter 7 Medicare Benefits Manual 30.1.1 , The condition of the patient is such that there exists a normal inability to leave home and consequently, leaving home would require a considerable and taxing effort. Diet Recommendation: no restrictions on diet Diet Texture: Regular Texture Diet Additional Instructions: Toe touch weight bearing left leg Keep dressing c/d/i for 3d, then may shower. Do not soak. Cover with dry dressing (gauze and ALEX wrap) as needed Encourage ROM of knee and ankle as tolerated Elevate L leg when resting on pillows Ice pack as needed F/u with Dr. Pimentel in 10-14d Plan 3 wks Lovenox 40mg SQ qday for DVT prophylaxis/ have nurse administer daily scripts were [facility] to [facility] - Follow Up Care Current Providers and Referrals: Efra Hastings MD [Primary Care Provider] - Patient,NotPresent [Unknown] - As per Instructions Mo Pimentel MD [Medical Doctor] -
--- NOTE | 2018-01-10 16:02 | GDS ---
[f rep st] DISCHARGE SUMMARY DISCHARGE DIAGNOSES: 1. Acute tibia-fibular fracture status post intramedullary nailing. 2. Gastroesophageal reflux disease. 3. Cerebral palsy. 4. Atelectasis. CONSULTATION: Dr. Pimentel. HISTORY OF PRESENT ILLNESS: Briefly, the patient is a 47-year-old female who presented with acute le ft tibia-fibular fracture status post mechanical fall. She was seen and had surgery with Dr. Pimentel. S he has done very well. Of note, she has underlying cerebral palsy and lives with her aunt. Recommen dation was to go to a fpc facility, but the patient is very much anxious to go home. She will get home care. She also has a fair amount of steps to get into her home. They have arranged f or the fire department to get her in the house. HOSPITAL COURSE: 1. Acute tibia-fibular fracture. She is status post repair. She will be touchdown weightbearing to her left lower extremity and to follow up with Dr. Pimentel. The recommendation is for her to do a total of 3 weeks of Lovenox post surgery. A prescription has been sent. 2. Gastroesophageal reflux disease. Resumed her PPI and H2 uriel. 3. Cerebral palsy. She is very high functioning at baseline. 4. Acute atelectasis, resolved. DISCHARGE CONDITION: Stable. PHYSICAL EXAMINATION: VITAL SIGNS: Blood pressure is 148/88, heart rate of 81, O2 saturation on [place] m air 91%. Temperature is 36.9. Respiratory rate is 18. MEDICATIONS AT DISCHARGE: Please see the EMR. DISCHARGE INSTRUCTIONS: 1. Toe-touch weightbearing to left leg. 2. To keep dressing clean, dry, and intact for 3 days and then shower. Do not soak. 3. Elevate left leg when resting on pillows. 4. Ice pack as needed. 5. Follow up with Dr. Pimentel in 10-14 days. 6. Take Lovenox for a total of 3 weeks postop. 7. Her prescriptions will be delivered to her from [facility]. Greater than 30 minutes discharging and coordinating the patient's care. /[id number]/MODL
--- NOTE | 2018-01-10 16:58 | ASMTCMCOM ---
CM Note CM Note Notes: Pt medically stable for d/c with [facility] PT/OT. Orders to be obtained in [facility]. Pt will have RN/neighbor help with Lovenox shots. Pt will have [facility] dept assist with stairs into home. Pt has all DME. Spoke with aunt Flaca who pt lives with and she agrees with plan. Date Signed: 01/10/2018 04:57 PM Electronically Signed By:SARATH Escoto
== END 2018-01-10 16:02 | disposition home health service (06) | DRG 493 ==
LOC: EDUNIT# → INTOOBSV 21:48 → F3N 23:40 → OBSVTOIN 01-08 16:06
PROVIDERS: ADMIT Internal Medicine; ATTEND Internal Medicine
PROC: 0QSH06Z Reposition Left Tibia with Intramedullary Internal Fixation Device, Open Approach (ICD-10-PCS; principal; 2018-01-08 11:45)
DX: S82.202A Unspecified fracture of shaft of left tibia, initial encounter for closed fracture (principal); J98.11 Atelectasis; W01.0XXA Fall on same level from slipping, tripping and stumbling without subsequent striking against object, initial encounter; S82.402A Unspecified fracture of shaft of left fibula, initial encounter for closed fracture; K21.9 Gastro-esophageal reflux disease without esophagitis; I10 Essential (primary) hypertension; G80.9 Cerebral palsy, unspecified; G40.909 Epilepsy, unspecified, not intractable, without status epilepticus; E78.00 Pure hypercholesterolemia, unspecified
CPT/HCPCS: 96374; 97116-GP; 97162-GP; 97165-GO; C1713; C1769; G8978-GP-CJ; G8979-GP-CI; G8987-GO-CI; G8988-GO-CI; J0690; J1100; J1170; J1650; J1885; J1953; J2060; J2250; J2270; J2405; J2704; J3010

== ENCOUNTER 2018-01-11 15:43 | Emergency (ER) | payer OTHER, MEDICAID ==
--- NOTE | 2018-01-11 17:11 | EDPHY ---
HPI/HX/ROS/PE/MDM Narrative: CHIEF COMPLAINT: Decreased oxygen saturation HPI: This patient is a 47 year-old female with history of cerebral palsy, seizure disorder, depression, and hyperlipidemia who is s/p surgical correction of a left tibia-fibular fracture due to a mechanical fall 01/07/18. She was admitted following this and discharged yesterday. She was recommended to go to a long-term facility, but preferred to be discharged home with arrangements for home care. Today, her physical therapist came to her home and noted her SpO2 was fluctuating, down to 86. The patient denies chest pain or shortness of breath. She is taking oxycodone and 1000mg Tylenol for pain relief. Her most recent dose of oxycodone was one tab at 9:00am. She has not taken any additional painkillers since that time other than Tylenol. The patient is currently anticoagulated postoperatively with Lovenox. She denies fever, nausea , vomiting, diarrhea, urinary complaints, or other associated symptoms. REVIEW OF SYSTEMS: Aside from elements discussed in the HPI, a comprehensive 10-point review of systems was reviewed and is negative. PMH: Cerebral palsy. Seizure disorder (Lamictal, Keppra). Depression. Hyperlipidemia. S/p intramedullary nailing for acute tibia-fibular fracture with Dr. Pimentel, orthopedic surgeon. 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 Aunt at bedside. Lives in [place]. PHYSICAL EXAM: General:Patient is alert, in no acute distress. ENT:Eyes are normal to inspection. ENT inspection normal. Neck: Normal inspection. Full range of motion. Respiratory:No respiratory distress. Breath sounds normal bilaterally. Cardiovascular: Regular rate and rhythm. Strong peripheral pulses. Normal cap refill. Abdomen:The abdomen is nontender to palpation. There are no peritoneal signs. There are normal bowel sounds. Back: Normal to inspection. No tenderness to palpation. Skin: Normal color. No rash. Warm and dry. Extremities: Left leg is bandaged and wrapped post-operatively. Otherwise normal appearance of extremities and normal active ROM for patient. Neuro: Oriented x3. Normal motor function. Normal sensory function. ED Course: 47 y/o female presents following an episode of reported hypoxemia this afternoon. Her SpO2 is normal here in the emergency department, around 95%. Patient denies any shortness of breath. Plan for chest x-ray for further evaluation. 17:08 Patient's nurse alerted me that her SpO2 dropped briefly to 86%, but returned to normal a few seconds later. Plan to observe. Reviewed radiologist report of patient's CXR. Impression: Early/impending CHF with possible interstitial pulmonary edema. Query cardiomyopathy. Consulted with radiology regarding these results. Plan for CTA chest for further evaluation. Patient's SpO2 has dropped again briefly on several occasions. Plan for labs including CBC, chemistries, BNP, POC troponin. 17:58 POC troponin is 0.06. 19:[address] Larsen, radiologist. CTA chest is negative for acute processes. Reassessed patient. Discussed imaging and laboratory results. Plan to discharge home in good condition. She will follow up for her regular post-operative plan of care. Return precautions discussed. She is comfortable with this plan. MDM: This patient presents with brief episodes of mild hypoxemia, which seem most consistent with living at increased altitude and taking narcotic pain medications. Her workup was remarkable for mildly elevated BNP and equivocal findings on CXR including cardiomegaly, so workup was expanded to include CTA of chest, which is thankfully negative for PE, PNA. There are no signs of ACS or CHF. On re-evaluation, patient's pulse ox remains within normal limits on room air and patient adamantly does not want to stay in hospital for observation /admission. - Data Points Imaging Results: Imaging Impressions Chest X-Ray 01/11/18 16:09 Impression: Early/impending CHF with possible interstitial pulmonary edema. Does this patient have a cardiomyopathy? Chest X-Ray 01/11/18 16:46 Impression: Early/impending CHF. Chest/Thorax CTA 01/11/18 18:41 Impression: 1. No definite pulmonary thromboemboli. 2. No pneumonia or congestive heart failure. 3. No aortic aneurysm or dissection. 4. Small hiatal hernia. Findings and recommendations discussed with Emergency Department physician, Rachid Breen M.D., at 1934 hours, on January 11, 2018. Final report concurs with initial preliminary interpretation. A test result has been communicated to a licensed care provider and documented in the [employer] Critical Result system on 01/11/2018 19:34, Message ID [id number]. Imaging: I viewed and interpreted images myself Laboratory Results: Laboratory Results 07/11/18 17:33 01/11/18 17:33 01/11/18 01/11/18 01/11/18 17:41 17:33 17:33 WBC 6.91 10^3/uL 10^3/uL (3.80-9.50) RBC 3.75 10^6/uL L 10^6/uL (4.18-5.33) Hgb 12.2 g/dL L g/dL (12.6-16.3) Hct 35.9 % L % (38.0-47.0) MCV 95.7 fL fL (81.5-99.8) MCH 32.5 pg pg (27.9-34.1) MCHC 34.0 g/dL g/dL (32.4-36.7) RDW 12.4 % % (11.5-15.2) Plt Count 180 10^3/uL 10^3/uL (150-400) MPV 9.4 fL fL (8.7-11.7) Neut % (Auto) 51.8 % % (39.3-74.2) Lymph % (Auto) 36.6 % % (15.0-45.0) [place] % (Auto) 9.1 % % (4.5-13.0) Eos % (Auto) 1.7 % % (0.6-7.6) Baso % (Auto) 0.7 % % (0.3-1.7) Nucleat RBC Rel Count 0.0 % % (0.0-0.2) Absolute Neuts (auto) 3.57 10^3/uL 10^3/uL (1.70-6.50) Absolute Lymphs (auto) 2.53 10^3/uL 10^3/uL (1.00-3.00) Absolute Monos (auto) 0.63 10^3/uL 10^3/uL (0.30-0.80) Absolute Eos (auto) 0.12 10^3/uL 10^3/uL (0.03-0.40) Absolute Basos (auto) 0.05 10^3/uL 10^3/uL (0.02-0.10) Absolute Nucleated RBC 0.00 10^3/uL 10^3/uL (0-0.01) Immature Gran % 0.1 % % (0.0-1.1) Immature Gran # 0.01 10^3/uL 10^3/uL (0.00-0.10) Sodium 135 mEq/L mEq/L (135-145) Potassium 4.0 mEq/L mEq/L (3.3-5.0) Chloride 102 mEq/L mEq/L (97-110) Carbon Dioxide 29 mEq/l mEq/l (22-31) Anion Gap 4 mEq/L L mEq/L (8-16) BUN 11 mg/dL mg/dL (7-23) Creatinine 0.8 mg/dL mg/dL (0.6-1.0) Estimated GFR > 60 Glucose 85 mg/dL mg/dL (70-100) Calcium 9.3 mg/dL mg/dL (8.5-10.4) POC Troponin I 0.06 ng/mL ng/mL (0.00-0.08) NT-Pro-B Natriuret Pep 1500 pg/mL H pg/mL (0-125) Medications Given: Discontinued Medications Acetaminophen (Tylenol) 1,000 mg PO EDNOW ONE Stop: 01/11/18 19:01 Last Admin: 01/11/18 19:02 Dose: 1,000 mg Point of Care Test Results: Chemistry 01/11/18 17:41 POC Troponin I 0.06 ng/mL ng/mL (0.00-0.08) General Time Seen by Provider: 01/11/18 15:57 Initial Vital Signs: Initial Vital Signs Temperature (C) 36.8 C 01/11/18 15:49 Heart Rate 87 01/11/18 15:49 Respiratory Rate 16 01/11/18 15:49 Blood Pressure 131/82 H 01/11/18 15:49 O2 Sat (%) 96 01/11/18 15:49 O2 Delivery Mode Room Air Allergies/Adverse Reactions: No Known Drug Allergies Allergy (Unknown, Unverified 01/10/18 10:16) ENVIRONMENTAL Allergy (Mild, Uncoded 11/19/11 14:59) STUFFY NOSE Home Medications: Medication Instructions Recorded Ergocalciferol [Vitamin D2 (*)] 50,000 unit PO Q14D 09/05/11 levETIRAcetam [Keppra 500 mg (*)] 250 mg PO BID 09/05/11 lamoTRIgine [LamICTAL 100 MG (*)] 150 mg PO BID 09/07/11 Atenolol [Tenormin 100 mg (*)] 100 mg PO DAILY 01/07/18 Herbals/Supplements -Info Only 1 ea PO DAILY 01/07/18 Omeprazole 20 mg PO DAILY 01/07/18 Pravastatin Sodium [Pravachol] 10 mg PO HS 01/07/18 valACYclovir [Valtrex (*)] 2,000 mg PO Q12 PRN MDD ONE DAY 01/07/18 Cetirizine [ZyrTEC 10 mg (*)] 10 mg PO DAILY PRN 01/08/18 Citalopram [CeleXA 20 MG] 20 mg PO DAILY 01/08/18 Acetaminophen [Tylenol 325mg (*)] 650 mg PO Q4HRS PRN tab 01/10/18 Enoxaparin [Lovenox 40 MG (*)] 40 mg SC DAILY #19 syr 01/10/18 Polyethylene Glycol 3350 [Miralax 17 gm PO DAILY PRN pkt 01/10/18 17 gm (*)] Sennosides/Docusate Sodium 1 - 2 tab PO BID tab 01/10/18 [Senokot-S] oxyCODONE IR [Oxycodone Ir (*)] 5 mg PO Q4HRS PRN #10 tab 01/10/18 Departure - Departure Disposition: Home, Routine, Self-Care Clinical Impression: Reported hypoxemia Condition: Good Instructions: Hypoxemia (DC) Additional Instructions: 1. Follow up with your orthopedic brace maker and other post-surgical providers as directed. 2. Return to the emergency department for recurrent low oxygen levels or if you develop fever, chest pain, shortness of breath, severe pain, or other worsening of condition. Referrals: Efra Hastings MD [Primary Care Provider] - As per Instructions Report Scribed for: Rachid Breen Report Scribed by: Leslie Luciano Date of Report: 01/11/18 Time of Report: 16:03 Physician Review and Approval Statement: Portions of this note were transcribed by an ED scribe. I personally performed the history, physical exam, and medical decision making; and confirm the accuracy of the information in the transcribed note.
[2018-01-11 17:53] LABS: PLATELET COUNT 180 10^3/uL (150-400)
[2018-01-11] MEDS ORDERED: IOPAMIDOL (ISOVUE 370) 100 ML BTL IV ONE (18:45)
[2018-01-11] MEDS ORDERED: ACETAMINOPHEN 500 MG TAB PO ONE (19:00)
[2018-01-11 19:46] VITALS: BP 143/89
== END 2018-01-11 20:37 | disposition home or self-care (01) ==
DX: R09.02 Hypoxemia (principal)
CPT/HCPCS: 71045; 71046; 71275; 99285; Q9967; 84484-PO

== ENCOUNTER → 2018-01-25 | Outpatient (CLI) | payer OTHER, MEDICAID | LOC: BMCIMAGING 14:46 | PROVIDERS: ATTEND Orthopaedic Surgery Hand Surgery | DX: S82.832D Other fracture of upper and lower end of left fibula, subsequent encounter for closed fracture with routine healing (principal) ==

== ENCOUNTER 2018-01-27 10:22 | Day surgery (SDC) | payer OTHER, MEDICAID ==
[2018-01-27] MEDS ORDERED: LR 1,000 ML IV ONE (11:04)
[2018-01-27] MEDS ORDERED: BUPIVACAINE/EPI 0.5% 30 ML SDV ONE (11:23)
[2018-01-27] MEDS ORDERED: ceFAZolin 2 GM/DEXTROSE 100 ML IV ONE (13:01)
[2018-01-27] MEDS ORDERED: MIDAZOLAM 2 MG/2 ML VIAL IVP ONE (13:14)
[2018-01-27] MEDS ORDERED: MIDAZOLAM 2 MG/2 ML VIAL ONE (13:15)
--- NOTE | 2018-01-27 13:16 | PDANEPAE ---
ANE History of Present Illness h/o CP left tibial fx IM nail revision ANE Past Medical History - Cardiovascular History Hx Hypertension: Yes Hx Arrhythmias: No Hx Chest Pain: No Hx Coronary Artery / Peripheral Vascular Disease: No Hx CHF / Valvular Disease: No Hx Palpitations: No - Pulmonary History Hx COPD: No Hx Asthma/Reactive Airway Disease: No Hx Recent Upper Respiratory Infection: No Hx Oxygen in Use at Home: No Hx Sleep Apnea: No Pulmonary History Comment: on statin drug - Neurologic History Hx Cerebrovascular Accident: No Hx Seizures: Yes Hx Dementia: No Neurologic History Comment: last seizure 2016. Left arm weaker than right. - Endocrine History Hx Diabetes: No Obesity: no - Renal History Hx Renal Disorders: No - Liver History Hx Hepatic Disorders: No - Neurological & Psychiatric Hx Hx Neurological and Psychiatric Disorders: No Neurological / Psychiatric History Comment: mild depression - Cancer History Hx Cancer: No - Congenital Disorder History Hx Congenital Disorders: No - GI History Hx Gastrointestinal Disorders: Yes Gastrointestinal History Comment: heartburn - Other Health History Other Health History: R big toe pain - Chronic Pain History Chronic Pain: No - Surgical History Prior Surgeries: ORIF L ankle, L ankle hardware removal ANE Review of Systems Review of systems is: negative Review of Systems: - Exercise capacity Exercise capacity: >=4 METS ANE Patient History - Allergies Allergies/Adverse Reactions: No Known Drug Allergies Allergy (Unknown, Unverified 01/10/18 10:16) ENVIRONMENTAL Allergy (Mild, Uncoded 11/19/11 14:59) STUFFY NOSE - Home Medications Home medications: home medication list seen and reviewed Home Medications: Ergocalciferol [Vitamin D2 (*)] 50,000 unit PO Q14D 09/05/11 [Last Taken ] levETIRAcetam [Keppra 500 mg (*)] 250 mg PO BID 09/05/11 [Last Taken 01/27/18] lamoTRIgine [LamICTAL 100 MG (*)] 150 mg PO BID 09/07/11 [Last Taken 01/27/18] Atenolol [Tenormin 100 mg (*)] 100 mg PO DAILY 01/07/18 [Last Taken 01/27/18] Herbals/Supplements -Info Only 1 ea PO DAILY 01/07/18 [Last Taken 01/26/18] Omeprazole 20 mg PO DAILY 01/07/18 [Last Taken 01/27/18] Pravastatin Sodium [Pravachol] 10 mg PO HS 01/07/18 [Last Taken 01/26/18] valACYclovir [Valtrex (*)] 2,000 mg PO Q12 PRN MDD ONE DAY 01/07/18 [Last Taken Unknown] Citalopram [CeleXA 20 MG] 20 mg PO DAILY 01/08/18 [Last Taken 01/27/18] - NPO status NPO Since - Liquids (Date): 01/27/18 NPO Since - Liquids (Time): 08:30 NPO Since - Solids (Date): 01/26/18 NPO Since - Solids (Time): 19:30 - Anes Hx Anes Hx: no prior problems - Smoking Hx Smoking Status: Never smoked ANE Labs/Vital Signs - Vital Signs Blood Pressure: 115/65 Heart Rate: 69 Respiratory Rate: 16 O2 Sat (%): 94 Height: 157.48 cm Weight: 72.575 kg ANE Physical Exam - Airway Neck exam: FROM Mallampati Score: Class 1 Mouth exam: normal dental/mouth exam - Pulmonary Pulmonary: no respiratory distress - Cardiovascular Cardiovascular: regular rate and rhythym - ASA Status ASA Status: III ANE Anesthesia Plan Anesthesia Plan: GA w LMA
[2018-01-27] MEDS ORDERED: fentaNYL 100 MCG/2 ML INJ ONE ×3 (13:22→15:20)
[2018-01-27] MEDS ORDERED: PROPOFOL 200 MG/20 ML VIAL ONE ×2 (13:22→13:41)
[2018-01-27] MEDS ORDERED: LIDOCAINE 2% 5 ML SDV ONE (13:24)
[2018-01-27] MEDS ORDERED: ONDANSETRON 4 MG/2 ML VIAL ONE (13:24)
[2018-01-27] MEDS ORDERED: DEXAMETHASONE 4 MG/ML VIAL ONE (13:24)
[2018-01-27] MEDS ORDERED: KETOROLAC 30 MG/1 ML SDV ONE (13:24)
--- NOTE | 2018-01-27 13:49 | POSTANESTH ---
Post Anesthetic Evaluation Cardiovascular Status: Normal, Stable Respiratory Status: Normal, Stable Level of Consciousness/Mental Status: Can Participate in Eval, Alert and Oriented Pain Control: Adequate, Prn Tx Ordered Nausea/Vomiting Control: Adequate, Prn Tx Ordered Complications Possibly Related to Anesthesia: None Noted
[2018-01-27] MEDS ORDERED: ONDANSETRON 4 MG/2 ML VIAL IVP PRN (14:53)
[2018-01-27] MEDS ORDERED: PROMETHAZINE HCL 25 MG/ML INJ IVP PRN (14:53)
[2018-01-27] MEDS ORDERED: HYDROCODONE/APAP 5/325 TAB PO PRN (14:53)
[2018-01-27] MEDS ORDERED: oxyCODONE IR 5 MG TAB PO PRN (14:53)
[2018-01-27] MEDS ORDERED: LR 500 ML IV PRN (14:53)
[2018-01-27] MEDS ORDERED: ALBUTEROL 3 ML DEYVIAL IH PRN (14:53)
[2018-01-27] MEDS ORDERED: ACETAMINOPHEN 500 MG TAB PO PRN (14:53)
[2018-01-27] MEDS ORDERED: HYDROmorphONE/DILAUDID 1 MG/ML INJ IVP PRN (14:53)
[2018-01-27] MEDS ORDERED: NALOXONE HCL 0.4 MG/ML INJ IVP PRN (14:53)
[2018-01-27] MEDS: fentaNYL 100 MCG/2 ML INJ IVP PRN ×2 (15:21→15:32)
[2018-01-27] MEDS ORDERED: ACETAMINOPHEN 500 MG TAB ONE (16:09)
--- NOTE | 2018-01-27 16:25 | GOP ---
[f rep st] OPERATIVE REPORT DATE OF OPERATION: 01/27/2018 SURGEON: Mo Pimentel MD ANESTHESIA: General. PREOPERATIVE DIAGNOSIS: POSTOPERATIVE DIAGNOSIS: PROCEDURE PERFORMED: Left tibia nail revision of distal interlocking screws. FINDINGS: ESTIMATED BLOOD LOSS: 10 cc. INDICATIONS: This patient is well known to me. I performed a left tibia IM nail about 2-1/2 weeks ago. She presented to the clinic on her 1st followup. X -ray was taken and showed that the most distal interlock screw had backed out by over 1 cm. The more proximal of the distal interlocks was beginning to loosen as well. The patient has a history of prior ankle fracture. She has cerebral palsy affecting that side and has somewhat osteopenic bone, which may have contributed to the loss of fixation. I felt that revising this as soon as possible to a more stable construct was necessary to allow for appropriate healing of her tibia fracture. She was thus scheduled for revision after discussing risks and benefits with her and her aunt. DESCRIPTION OF PROCEDURE: The patient was seen in the preop holding area, where she had the opportunity to ask questions. All questions answered. Consent was signed. Surgical site was marked. She was transferred to the operative suite. Care was taken to transfer patient from the rney to the operating table. Care was taken to pad all bony prominences. General anesthesia was induced by the anesthesia team. Time-out was called including surgical and anesthesia teams confirming the surgical procedure performed. 2 g of Ancef were given prior to incision. The left lower extremity prepped and draped in the usual sterile fashion. Esmarch was used to exsanguinate the lower extremity. Tourniquet was inflated to 300 mmHg. We began by taking an x- ray. Appears to have maintained reduction of the tibia fracture. The ankle varus from her prior ankle fracture was present. The screw that had backed out was visible. Thus opened the 2 prior incisions for the interlocks. I first removed the most distal interlock. I then drilled through the outer diameter for the angular stable interlock screw per the instrument technician's recommendations. I placed the screw longer than the prior one, then did the same for the more proximal interlock. Then decided for increased fixation to stabilize her construct to place a 3rd interlock screw. This was the A to P screw. I then performed this in the standard manner with a freehand technique. I made a generous incision, spread down to bone to protect all the anterior structures. Then drilled in the standard fashion for the angular stable locking screw and placed the screw. All the locking screws had good bite. Then, the tourniquet was then let down. Bleeding was controlled. All the incisions were irrigated copiously with sterile saline. They were closed in layers with 3-0 Monocryl and 3-0 nylon. A sterile dressing was applied. Final x-rays were taken and manipulated the ankle under live fluoroscopy to ensure that it was completely stable and it was. Then completed the procedure. The patient was taken to the PACU in stable condition. The foot was well perfused after the procedure. IMPLANTS USED: Synthes angular stable interlock screws x3. POSTOPERATIVE CONDITION: Stable. POSTOPERATIVE PLAN: The patient will follow up with me in 2 weeks. She will continue to be toe-touch weightbearing for the left lower extremity. She will continue her Lovenox. /[id number]/MODL MTDD
[2018-01-27 17:06] VITALS: BP 103/65
== END 2018-01-27 16:54 | disposition home or self-care (01) ==
LOC: FSGY 10:22
PROVIDERS: ATTEND Orthopaedic Surgery Hand Surgery
PROC: 0QSH36Z Reposition Left Tibia with Intramedullary Internal Fixation Device, Percutaneous Approach (ICD-10-PCS; principal; 2018-01-27 13:45)
DX: T84.117A Breakdown (mechanical) of internal fixation device of bone of left lower leg, initial encounter (principal)
CPT/HCPCS: C1713; J0690; J1100; J1885; J2250; J2405; J2704; J3010

== ENCOUNTER → 2018-03-07 | Outpatient (CLI) | payer OTHER | LOC: BMCIMAGING 11:07 | PROVIDERS: ATTEND Orthopaedic Surgery Hand Surgery | DX: S82.252D Displaced comminuted fracture of shaft of left tibia, subsequent encounter for closed fracture with routine healing (principal); S82.832D Other fracture of upper and lower end of left fibula, subsequent encounter for closed fracture with routine healing; M19.072 Primary osteoarthritis, left ankle and foot ==

== ENCOUNTER → 2018-03-13 | Outpatient (CLI) | payer OTHER, MEDICAID | LOC: FIMAGING 11:08 | PROVIDERS: ATTEND Internal Medicine | DX: Z12.31 Encounter for screening mammogram for malignant neoplasm of breast (principal); Z80.3 Family history of malignant neoplasm of breast ==

== ENCOUNTER → 2018-04-10 | Outpatient (CLI) | payer OTHER, MEDICAID | LOC: BMCIMAGING 14:07 | PROVIDERS: ATTEND Orthopaedic Surgery Hand Surgery | DX: S82.302D Unspecified fracture of lower end of left tibia, subsequent encounter for closed fracture with routine healing (principal); S82.832D Other fracture of upper and lower end of left fibula, subsequent encounter for closed fracture with routine healing ==

== ENCOUNTER 2018-12-26 12:54 | Day surgery (SDC) | payer OTHER, MEDICAID | END 2018-12-26 16:30 | disposition home or self-care (01) | LOC: FIMAGING 12:54 ==